=== PATIENT | male | born 1975 | race Two or more races ===

== ENCOUNTER 2017-01-31 07:05 | Day surgery (SDC) | payer BC ==
[2017-01-28 15:07] VITALS: BMI 35.9
[2017-01-31] MEDS ORDERED: methylPREDNISolone ACET (DEPO) 40 MG/1 ML VIAL ONE (07:12)
[2017-01-31] MEDS ORDERED: LIDOCAINE 1%/EPI 1:100000 (20 ML MULTI DOSE VIAL) ONE (07:13)
[2017-01-31] MEDS ORDERED: oxyCODONE HCL 10 MG SUSTAINED ACTING TABLET PO STA (07:13)
[2017-01-31] MEDS ORDERED: CEFAZOLIN 2 GM/D5W 50 ML IVPB ONE (07:13)
[2017-01-31] MEDS ORDERED: BUPIVACAINE HCL/PF 2.5 MG/ML - 30 ML VIAL IJ ONE (07:13)
[2017-01-31] MEDS ORDERED: THROMBIN (BOVINE) 5,000 UNIT VIAL TP ONE ×3 (07:13→10:08)
--- NOTE | 2017-01-31 07:13 | HP ---
History & Physical Update - History History: No Change - Physical Physical: No Change - Assessment Assessment: No Change - Plan Plan: No Change (initial h&p is in patient's paper chart. Completed 01/28/[address] Zhang)
[2017-01-31] MEDS ORDERED: oxyCODONE HCL 10 MG SUSTAINED ACTING TABLET ONE (07:36)
[2017-01-31] MEDS ORDERED: MIDAZOLAM HCL 2 MG/2 ML SINGLE DOSE VIAL ONE ×2 (07:47→09:25)
[2017-01-31] MEDS ORDERED: ceFAZolin SODIUM 1 GM VIAL ONE (08:48)
[2017-01-31] MEDS ORDERED: ONDANSETRON 4 MG/2 ML VIAL ONE (08:48)
[2017-01-31] MEDS ORDERED: DEXAMETHASONE SOD PHOSPHATE 4 MG/1 ML VIAL ONE (08:48)
[2017-01-31] MEDS ORDERED: LIDOCAINE 1%/EPI 1:100000 (50 ML MULTI DOSE VIAL) INF ONE (09:06)
[2017-01-31] MEDS ORDERED: LIDOCAINE HCL 2% (50ML VIAL) INF ONE (09:15)
[2017-01-31] MEDS ORDERED: BUPIVACAINE HCL/PF 0.25% (2.5MG/ML) 10 ML VIAL IJ ONE ×2 (09:38→10:12)
[2017-01-31] MEDS ORDERED: methylPREDNISolone ACET (DEPO) 40 MG/1 ML VIAL NR ONE ×2 (09:39→10:09)
--- NOTE | 2017-01-31 11:01 | SURG ---
Surgery Carpenter Inspector Note Carpenter Inspector: Lauren Bey PA-C Date of Service: 01/31/17 Diagnosis: Spinal stenosis, L5-S1 herniated disc and lumbar radiculopathy Procedure: L5-S1 bilateral laminectomy with discectomy I was present for the entirety of the operative procedure. For further detail, please refer to operative report. Visit type - Case Type Case Type: Scheduled Admission - Emergency Emergency Visit: No - New patient This patient is new to me today: Yes Date on this admission: 01/31/17
--- NOTE | 2017-01-31 11:05 | OP ---
Operative Note - Note: Operative Date: 01/31/17 Pre-Operative Diagnosis: spinal stenosis, L5-S1 herniated disc with lumbar radiculopathy Operation: L5-S1 bilateral laminectomy with discectomy Post-Operative Diagnosis: Same as Pre-op Surgeon: Wilian Hamilton Dialysis Biomed Technician: Lauren Bey (Alexy Vizcarra) Anesthesiologist/EMERGENCY DEPARTMENT MANAGER: Anna Do Anesthesia: Spinal Specimens Removed: L5-S1 disc Estimated Blood Loss (mls): 25 Fluid Volume Replaced (mls): 1,000 Operative Report Dictated: Yes
[2017-01-31] MEDS ORDERED: ACETAMINOPHEN 1000 MG/100 ML VIAL (NON FORMULARY) IVPB ONE ×2 (11:07→11:12)
[2017-01-31] MEDS ORDERED: traMADol HCL 50 MG TABLET PO ONE ×2 (11:07→11:30)
[2017-01-31] MEDS ORDERED: ACETAMINOPHEN INJECTION 100 ML IVPB ONE (11:10)
[2017-01-31] MEDS ORDERED: traMADol HCL 50 MG TABLET ONE (11:25)
[2017-01-31] MEDS ORDERED: oxyCODONE HCL 5 MG TABLET PO PRN (12:22)
[2017-01-31] MEDS ORDERED: ONDANSETRON 4 MG/2 ML VIAL IVPUSH PRN (12:22)
[2017-01-31] MEDS ORDERED: oxyCODONE HCL 5 MG TABLET PO ONE (12:26)
[2017-01-31] MEDS ORDERED: LACTATED RINGERS SOLUTION 1,000 ML IV SCH (12:30)
[2017-01-31 14:12] VITALS: TEMP 98
[2017-01-31 14:15] VITALS: BP 135/74; PULSE 78
--- NOTE | 2017-02-01 12:34 | PATH ---
Surgical Pathology Report Patient Name: ANASTASIIA CELAYA [facility]. Rec. #: [id number] /Age/Gender: 1975 (Age: 41) / M Account: [id number] Location: [facility] AMBULATORY Taken: 01/31/2017 Received: 01/31/2017 Reported: 02/01/2017 Physicians: Wilian Hamilton M.D. Specimen(s) Received LUMBAR DISC L5-S1 Clinical History Spinal stenosis Final Diagnosis INTERVERTEBRAL DISC, L5-S1, PARTIAL EXCISION: PORTIONS OF INTERVERTEBRAL DISC. Electronically Signed Parker Mckeon M.D. Gross Description Received in formalin labeled "lumbar disc L5-S1," is a 2.1 x 1.5 x 0.3 cm aggregate of [place] fragments of fibrocartilaginous tissue. The specimen is entirely submitted in one cassette. /01/31/201701/31/2017
--- NOTE | 2017-02-24 14:07 | OP ---
DATE OF OPERATION: 01/31/2017 PREOPERATIVE DIAGNOSIS: Spinal stenosis, L5-S1. POSTOPERATIVE DIAGNOSIS: Spinal stenosis, L5-S1. PROCEDURE PERFORMED: Laminectomy, L5-S1. SURGEON: Wilian Hamilton MD TAR MAN: JOVANNI Richter, and JOVANNI Mendoza ESTIMATED BLOOD LOSS: 50 mL. INTRAVENOUS FLUIDS: Per Anesthesia. ANESTHESIA: Spinal. COMPLICATIONS: None. CONDITION: The patient was brought to the PACU in stable condition. INDICATIONS FOR SURGERY: The patient is a 41-year-old gentleman who has been suffering from pain from his back down his leg. X-rays and MRI were completed which show that he has spinal stenosis at L5-S1. He had gone through an exhaustive course of treatment for this, which included medications, physical therapy as well as injections. Unfortunately, his pain continued to persist in spite of all this. At this point, the risks, benefits and alternatives were discussed and the patient consented to surgery. DESCRIPTION OF PROCEDURE: The patient was brought to the operating room by the Anesthesia staff. After appropriate patient identification was performed, spinal anesthesia was given. The patient was placed prone onto the OR table with all areas of bony prominences well padded at this time. Two needles were placed into the back to tacho off the L5-S1 segments. An x-ray was taken to confirm this was correct. The needle was removed and 10 mL of lidocaine with epinephrine were injected into his back at this time. His back was prepped and draped in sterile manner. At this point, a time-out was completed. An incision was made from the top of L5 down to the bottom of S1. Dissection was carried down to the fascia. The fascia was then split open at this time and appropriate retractors were placed in. A spinal needle was placed onto the L5 lamina to tacho off the L5-S1 level. An x-ray was taken to confirm that this was correct. The needle was removed and the microscope was brought in. At this point, the interspinous ligament at L5-S1 was removed. Portions of the L4 and L5 spinous process were removed. Portions of the lamina were removed. The flavum was removed. A complete decompression was performed such that by the end of the procedure, the S1 nerve root appeared to be well decompressed. All bleeding was well controlled at this time. Steroid was placed over the nerve root. FloSeal was placed over that. The fascia was closed with number 1 Vicryl suture. The subcutaneous tissue was closed with 2-0 Vicryl suture. The skin was closed with 3-0 Monocryl suture. Dermabond was applied. Steri-Strips were applied. A sterile dressing was applied. The patient was placed supine on the OR bed and brought to the PACU in stable condition. Amando RICH/[id number] MTDD
== END 2017-01-31 14:16 | disposition home or self-care (01) ==
LOC: FASU 07:05
PROVIDERS: ATTEND Orthopaedic Surgery Orthopaedic Surgery of the Spine
PROC: 01NB0ZZ Release Lumbar Nerve, Open Approach (ICD-10-PCS; principal; 2017-01-31 08:31)
DX: M48.07 Spinal stenosis, lumbosacral region (principal)
CPT/HCPCS: 72100-TC; 76000-TC; 88304-TC; 94760

== ENCOUNTER 2017-07-09 18:49 | Emergency (ER) | payer BC ==
[2017-07-09 19:09] VITALS: BP 127/89; PULSE 74; TEMP 98.3; BMI 35.9
[2017-07-09] MEDS ORDERED: diazePAM 5 MG TABLET ONE (19:13)
[2017-07-09] MEDS ORDERED: KETOROLAC TROMETHAMINE 60 MG/2 ML VIAL ONE (19:13)
[2017-07-09] MEDS ORDERED: diazePAM 5 MG TABLET PO ONE (19:15)
[2017-07-09] MEDS ORDERED: KETOROLAC TROMETHAMINE 60 MG/2 ML VIAL IM ONE (19:15)
--- NOTE | 2017-07-09 20:19 | PDOC ---
History of Present Illness - General History Source: Patient Exam Limitations: No Limitations - History of Present Illness Initial Comments: 07/09/17 20:21 The patient is a 42 year old male s/p L-5/S-1 laminectomy and discectomy in January 2017 who presents with multiple days of worsening lower back pain. The patient reports sudden onset of back pain a few days ago that is accompanied with shooting pains down his bilateral lower extremities. He reports his pain is at its worst while sitting or standing for too long. His pain is relieved by lying flat. The patient reports that his pain has caused him to be bedridden the past few days, preventing him from working or performing activities of daily living. He reports taking over the counter pain relievers without any relief. He reports having a similar episode of pain a few months ago where his orthopedic surgeon prescribed him prednisone which he stated helped a lot. The patient denies any focal neurological deficits. He denies any recent illness, fevers or chills. Orthopedic surgeon: Dr. Hamilton <Melanie Amador - Last Filed: 07/09/17 20:21> <Hemanth Jean - Last Filed: 07/10/17 07:02> - General Chief Complaint: Chronic pain Stated Complaint: LOWER BACK PAIN Time Seen by Provider: 07/09/17 19:14 Past History <Melanie Amador - Last Filed: 07/09/17 20:21> - Past Medical History Anemia: No Asthma: No Cancer: No Cardiac Disorders: No CVA: No COPD: No CHF: No Dementia: No Diabetes: No GI Disorders: No Disorders: No HTN: No Hypercholesterolemia: No Liver Disease: No Seizures: No Thyroid Disease: No - Surgical History Abdominal Surgery: No Appendectomy: No Cardiac Surgery: No Cholecystectomy: No Lung Surgery: No Neurologic Surgery: No Orthopedic Surgery: No - Suicide/Smoking/Psychosocial Hx Smoking History: Former smoker Have you smoked in the past 12 months: No If you are a former smoker, when did you quit?: Information on smoking cessation initiated: No Hx Alcohol Use: Yes (DENIES USE) Drug/Substance Use Hx: Yes (DENIES USE, OLD RECORDS STATE HE HAD HX) Substance Use Type: Alcohol, Marijuana Hx Substance Use Treatment: No <Hemanth Jean - Last Filed: 07/10/17 07:02> - Past Medical History Allergies/Adverse Reactions: Allergies Allergy/AdvReac Type Severity Reaction Status Date / Time No Known Drug Allergies Allergy Verified 07/09/17 18:56 Home Medications: Ambulatory Orders Acetaminophen [Tylenol] 650 mg PO ONCE PRN 07/09/17 Diazepam [Valium] 10 mg PO Q8H PRN #16 tablet MDD 30mg 07/09/17 Naproxen 500 mg PO BID PRN #20 tablet. 07/09/17 Review of Systems - Review of Systems Able to Perform ROS?: Yes Comments:: 07/09/17 20:21 GENERAL/CONSTITUTIONAL: No fever or chills. No weakness. HEAD, EYES, EARS, NOSE AND THROAT: No change in vision. No ear pain or discharge. No sore throat. GASTROINTESTINAL: No nausea, vomiting, diarrhea or constipation. GENITOURINARY: No dysuria, frequency, or change in urination. CARDIOVASCULAR: No chest pain or shortness of breath. RESPIRATORY: No cough, wheezing, or hemoptysis. MUSCULOSKELETAL: Present: lower back pain No joint or muscle swelling or pain. SKIN: No rash NEUROLOGIC: No headache, vertigo, loss of consciousness, or change in strength/ sensation. ENDOCRINE: No increased thirst. No abnormal weight change. HEMATOLOGIC/LYMPHATIC: No anemia, easy bleeding, or history of blood clots. ALLERGIC/IMMUNOLOGIC: No hives or skin allergy. All Other Systems: Reviewed and Negative <Melanie Amador - Last Filed: 07/09/17 20:21> *Physical Exam - Vital Signs Last Vital Signs Temp Pulse Resp BP Pulse Ox 98.3 F 74 20 127/89 98 07/09/17 18:50 07/09/17 18:50 07/09/17 18:50 07/09/17 18:50 07/09/17 18:50 - Physical Exam Comments: 07/09/17 20:22 GENERAL: Awake, alert, and fully oriented, in no acute distress HEAD: No signs of trauma ABDOMEN: Soft, nontender, normoactive bowel sounds. No guarding, no rebound. No masses. No bladder distention EXTREMITIES: Normal range of motion, no edema. No clubbing or cyanosis. No cords, erythema, or tenderness BACK: Paraspinal tenderness, normal sensation and motor in distal and lower extremities NEUROLOGICAL: Normal speech, cranial nerves intact, negative pronator drift, 5/ 5 strength in all 4 extremities, normal sensation to light touch in all 4 extremities, normal cerebellar exam, normal gait, normal reflexes and tone SKIN: Warm, Dry, normal turgor, no rashes or lesions noted. <Melanie Amador - Last Filed: 07/09/17 20:21> - Vital Signs Last Vital Signs Temp Pulse Resp BP Pulse Ox 98.3 F 74 20 127/89 98 07/09/17 18:50 07/09/17 18:50 07/09/17 18:50 07/09/17 18:50 07/09/17 18:50 <Hemanth Jean - Last Filed: 07/10/17 07:02> ED Treatment Course - Medications Given in the ED: ED Medications Discontinued Medications Generic Name Dose Route Start Last Admin Trade Name Freq PRN Reason Stop Dose Admin Diazepam 10 mg 07/09/17 19:15 07/09/17 19:20 Valium - PO 07/09/17 19:16 10 mg ONCE ONE Administration Ketorolac Tromethamine 60 mg 07/09/17 19:15 07/09/17 19:19 Toradol Injection - IM 07/09/17 19:16 60 mg ONCE ONE Administration <Melanie Amador - Last Filed: 07/09/17 20:21> - Medications Given in the ED: ED Medications Discontinued Medications Generic Name Dose Route Start Last Admin Trade Name Freq PRN Reason Stop Dose Admin Diazepam 10 mg 07/09/17 19:15 07/09/17 19:20 Valium - PO 07/09/17 19:16 10 mg ONCE ONE Administration Ketorolac Tromethamine 60 mg 07/09/17 19:15 07/09/17 19:19 Toradol Injection - IM 07/09/17 19:16 60 mg ONCE ONE Administration <Hemanth Jean - Last Filed: 07/10/17 07:02> Medical Decision Making - Medical Decision Making 07/10/17 07:01 msk LBP failed back surgery syndrome nsaids muscle relaxants has spine fu <Hemanth Jean - Last Filed: 07/10/17 07:02> *DC/Admit/Observation/Transfer - Attestations Scribe Attestion: 07/09/17 20:23 Documentation prepared by Melanie Amador, acting as medical oncology physician for Hemanth Jean MD. 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 PRN Reason: Back Pain - Patient Instructions Printed Discharge Instructions: DI for Low Back Pain
== END 2017-07-09 20:48 | disposition home or self-care (01) ==
LOC: FER 18:49
PROC: 3E0233Z Introduction of Anti-inflammatory into Muscle, Percutaneous Approach (ICD-10-PCS; principal; 2017-07-09)
DX: Z98.890 Other specified postprocedural states (principal)
CPT/HCPCS: 99282-25